=== PATIENT | male | born 1965 | race Caucasian/White ===

== ENCOUNTER → 2024-12-14 | Outpatient (CLI) | payer BC, MEDICARE ==
[2024-12-14 13:06] VITALS: BP 139/89; PULSE 104; RESP 16; TEMP 97.7
--- NOTE | 2024-12-14 16:42 | P.PAINPG ---
PQRS Measure Charge Sheet Comment: HISTORY OF PRESENT ILLNESS: A 59 yr old male as a referral from [facility] presents today w severe and chronic LBP > 1 yr secondary to post L4-L5 PLIF, R L5-S1 Laminectomy for evaluation. Pt states pain level is provoked at 6 /10 in intensity, constant, localized in the lumbar spine, predominantly axial, tingly in character w occasional shooting towards the LLE. Pain is provoked by over activity and laying supine. Pain is alleviated by PT x 6 wks which ended in 2021, physician guided home exercises 4-5 times weekly since 2021, heat, medications (Addison, Naproxen), topical, THC, repositioning and rest . Oswestry axial pain score at 28. PMH: OA, HTN, Hyperlipidemia, BPH, Vitamin D Deficiency PSH: L4-L5 PLIF, L5-S1 R Partial Laminectomy (2016), Cervical surgery, BL Knee Surgery (Dr Castorena) SH: Tobacco use, Hx of ETOH abuse, Cannabis use FH: Mo- DM, Bro- DM, Fa- CAD All: See list Meds: See list REVIEW OF ORGAN SYSTEMS: CONSTITUTIONAL: No fevers or chills. No recent weight loss. NEUROLOGICAL: + numbness and tingling along the distal extremities. No seizure disorders or headaches. MUSCULOSKELETAL: + pain PSYCHIATRIC: Denies current depression or suicidal thoughts. Physical Examinations : Constitutional : Cooperative , not in acute distress . Neurologic : Cranial nerve II to XII intact. No focal neurological deficits. Psychiatric : alert & oriented x 3. Matching mood & appropriate affect. Judgment & insight intact. Musculoskeletal : Cervical Spine Motor strength in the deltoid and biceps: Normal right side. Normal Left side Motor strength biceps and the wrist extensors: Normal right side . Normal left side Motor strength in the triceps muscle: Normal right side. Normal left side Deep tendon reflexes: Normal at the biceps. Normal at Brachioradialis. Normal at triceps Vertebral body tenderness to deep palpation over Cervical facet loading test: positive bilaterally Spurling test: positive bilaterally Neck distraction test: positive bilaterally Jack sign: positive bilaterally Lumbar spine Motor strength lower extremities ,thigh and legs 5/5 Right side , 5/5 Left side Deep tendon reflexes : Normal Knee Jerk. Normal Ankle Jerk Vertebral body tenderness over L5 Simmons Test positive Lumbar facet Loading Test: positive Right / positive Left Range of motion of the lumbar spine Flexion 30 degrees, extension 10 degrees Straight Leg Raise test: Left/ Right positive at degrees Maximilian test: positive right / positive left. Severe tenderness over the Sacroiliac joint on the Right / Left sides Gaenslen test: positive bilaterally Seated flexion test: positive bilaterally. Sacral spine : Severe tenderness over the Sacroiliac joint: right side / left side Range of motion: Flexion of the lumbar spine <60 degrees Range of motion: Extension of the lumbar spine <20 degrees Gaenslen's Test positive Maximilian test: positive right side / left side Thigh Thrust Test Sacral Thrust Test Imaging: CT non contrast lumbar spine from 11/02/25 reviewed Assessment/ Plan : L4-L5 PLIF, R L5-S1 Laminectomy Recommendation of Caudal OSMAR w Lysis but pt is disinterested at this time. Will continue using Addison from his PCp and/ or THC. All questions answered. I have spent greater than 30 minutes on patient care today. Dr Andres was available by phone for the evaluation of this patient. The time was used to review the medical records including relevant urine studies and Prescription history (MAPs), review of the available imaging, evaluation and examination of the patient, coordination of care with the medical staff and if applicable referring physicians, as well as creation of the medical record Home Medications: Ambulatory Orders Cyclobenzaprine [Flexeril] 5 mg PO TID PRN 12/14/24 HYDROcodone/APAP 5-325MG [Addison 5-325] 1 tab PO TID PRN 12/14/24 Metoprolol Tartrate [Lopressor] 50 mg PO DAILY 12/14/24 Naproxen Sodium [Aleve] 1 tab PO DAILY PRN 12/14/24 Simvastatin 40 mg PO HS 12/14/24 lisinopriL [Zestril] 1 tab PO HS 12/14/24 Controlled Substance Measures - Controlled Substance Measures Is patient prescribed a controlled substance at discharge?: No
== END ==
LOC: PNWHC3 12:17
PROVIDERS: ATTEND Specialist
DX: M43.26 Fusion of spine, lumbar region (principal); M46.1 Sacroiliitis, not elsewhere classified
CPT/HCPCS: 99202